=== PATIENT | female | born 1950 | race Caucasian/White ===

== ENCOUNTER → 2018-02-28 | Outpatient (CLI) | payer MEDICARE, OTHER | END | disposition home or self-care (01) | LOC: PCVCCLINIC 15:43 | DX: I42.9 Cardiomyopathy, unspecified (principal); I11.0 Hypertensive heart disease with heart failure; I50.22 Chronic systolic (congestive) heart failure; J44.9 Chronic obstructive pulmonary disease, unspecified; I47.1 Supraventricular tachycardia; J18.9 Pneumonia, unspecified organism; Z79.899 Other long term (current) drug therapy | CPT/HCPCS: 93005; G0463 ==

== ENCOUNTER → 2018-03-08 | Outpatient (CLI) | payer MEDICARE, OTHER ==
[~2018-03-08] MED LIST: DIAZEPAM 10 MG TABLET.; IOHEXOL 350 MG/ML 100 ML VIAL.; IOHEXOL 350 MG/ML 50 ML VIAL.; IV NORMAL SALINE 500ML BAG 500 ML; LIDOCAINE 1% PF 30 ML VIAL.; LIDOCAINE 1%/EPI 1:100,000 20 ML VIAL.; MIDAZOLAM HCL/PF 2 MG/2 ML VIAL.; fentaNYL PF VIAL 100 MCG/2 ML VIAL; hydrALAZINE 20 MG/ML VIAL.
== END | disposition home or self-care (01) ==
LOC: PCVCINTER 11:18
DX: I25.10 Atherosclerotic heart disease of native coronary artery without angina pectoris (principal); I70.1 Atherosclerosis of renal artery; I70.0 Atherosclerosis of aorta; I50.22 Chronic systolic (congestive) heart failure; J44.9 Chronic obstructive pulmonary disease, unspecified; I47.1 Supraventricular tachycardia; I11.0 Hypertensive heart disease with heart failure; Z87.01 Personal history of pneumonia (recurrent); Z79.899 Other long term (current) drug therapy; I42.9 Cardiomyopathy, unspecified
CPT/HCPCS: 36252; 75630; 75716; 76937; 93460; 99152; 99153; C1751; C1760; C1769; C1894; J0360; J1644; J2250; J3010; J3490; J7040; Q9967

== ENCOUNTER → 2018-04-06 | Outpatient (CLI) | payer MEDICARE, OTHER ==
--- NOTE | 2018-04-06 13:35 | PCVCIMAG ---
APPROVED REPORT Study performed: 04/06/2018 12:46:35 EXAM: Limited 2D, Doppler, and color-flow Echocardiogram Patient Location: Echo lab Status: routine BSA: 1.54 HR: 76 bpmBP: 122/84 mmHg Rhythm: NSR Other Information Study Quality: Adequate Indications CAD Cardiomyopathy 2D Dimensions LVEF(%): 34.70 (>50%) IVSd: 11.01 (7-11mm) LVDd: 47.74 mm PWd: 9.01 (7-11mm)Ascending Ao: 32.51 (22-36mm) LVDs: 39.84 (25-40mm) Left Atrium: 29.53 (27-40mm) Aortic Root: 30.05 mm LV Single Plane 4CH: 45.30 % LV Single Plane 2CH: 46.54 %Vasquez's LVEF: 45.92 % Biplane EF: 46.4 % Aortic Valve AoV Peak Delta.: 1.11 m/s AO Peak Gr.: 4.91 mmHg AI Vmax: 4.78 m/s AI Butts: 3.29 m/s2 AI PHT: 421.04 ms Mitral Valve E/A Ratio: 0.6 MV Decel. Time: 207.89 ms MV E Max Delta.: 0.53 m/s MV A Delta.: 0.82 m/s Tricuspid Valve TR Peak Delta.: 2.60 m/s TR Peak Gr.: 27.02 mmHg Left Ventricle The left ventricle is normal size. There is normal LV segmental wall motion. There is normal left ventricular wall thickness. Left ventricular systolic function is mildly decreased globally. LVEF is 45%. Grade I - abnormal relaxation pattern. Right Ventricle The right ventricle is normal size. The right ventricular systolic function is normal. Atria The left atrium size is normal. The right atrium size is normal. Aortic Valve The aortic valve is normal in structure. Mild aortic regurgitation. There is no aortic valvular stenosis. Mitral Valve The mitral valve is normal in structure. Trace mitral regurgitation. No evidence of mitral valve stenosis. Tricuspid Valve The tricuspid valve is normal in structure. Mild tricuspid regurgitation with PAP of 34 mmHg. Pulmonic Valve The pulmonary valve is normal in structure. There is mild pulmonic valvular regurgitation. Great Vessels The aortic root is normal in size. IVC is normal in size and collapses with >50% inspiration Pericardium There is no pericardial effusion. There is no pleural effusion. <Conclusion> The left ventricle is normal size. Left ventricular systolic function is mildly decreased globally. LVEF is 45%. Grade I - abnormal relaxation pattern. The right ventricle is normal size. The left atrium size is normal. Mild aortic regurgitation. Trace mitral regurgitation. Mild tricuspid regurgitation with PAP of 34 mmHg. The aortic root is normal in size. There is no pericardial effusion.
== END | disposition home or self-care (01) ==
LOC: PCVCIMAG 16:23
PROVIDERS: ATTEND Internal Medicine Cardiovascular Disease
DX: I08.2 Rheumatic disorders of both aortic and tricuspid valves (principal); I25.10 Atherosclerotic heart disease of native coronary artery without angina pectoris; J44.9 Chronic obstructive pulmonary disease, unspecified; I11.0 Hypertensive heart disease with heart failure; I50.9 Heart failure, unspecified; I47.1 Supraventricular tachycardia; Z88.8 Allergy status to other drugs, medicaments and biological substances; Z79.899 Other long term (current) drug therapy
CPT/HCPCS: 93005; 93308; G0463

== ENCOUNTER → 2019-04-05 | Outpatient (CLI) | payer MEDICARE, OTHER ==
--- NOTE | 2019-04-06 10:25 | PCVCIMAG ---
APPROVED REPORT Study performed: 04/05/2019 14:07:20 EXAM: Comprehensive 2D, Doppler, and color-flow Echocardiogram Patient Location: Echo lab Room #: [id number]: routine BSA: 1.64 HR: 77 bpmBP: 142/88 mmHg Other Information Study Quality: Good Risk Factors: Cardiac Risk Factors: HTN, Hyperlipidemia Indications COPD CAD Hypertension/HDD 2D Dimensions IVSd: 10.71 (7-11mm)LVOT Diam: 20.20 (18-24mm) LVDd: 46.18 mm PWd: 9.99 (7-11mm)Ascending Ao: 32.86 (22-36mm) LVDs: 32.73 (25-40mm) Left Atrium: 27.74 (27-40mm) Aortic Root: 25.28 mm LV Single Plane 4CH: 46.35 % LV Single Plane 2CH: 45.07 % Biplane EF: 47.1 % Volumes Left Atrial Volume (Systole) Single Plane 4CH: 37.42 mLSingle Plane 2CH: 44.76 mL Biplane LA Volume: 42.00 mLLA ESV Index: 26.00 mL/m2 Aortic Valve AoV Peak Delta.: 1.02 m/s AO Peak Gr.: 4.20 mmHgLVOT Max P.28 mmHg LVOT Max V: 0.76 m/s MARY Vmax: 2.36 cm2 AI Vmax: 4.91 m/s AI Anderson: 4.10 m/s2 AI PHT: 355.60 ms Mitral Valve E/A Ratio: 0.6 MV Decel. Time: 120.39 ms MV E Max Delta.: 0.52 m/s MV A Delta.: 0.88 m/s TDI E/Lateral E': 10.40E/Medial E': 13.00 Medial E' Delta.: 0.04 m/s Lateral E' Delta.: 0.05 m/s Pulmonary Valve PV Peak Delta.: 0.66 m/sPV Peak Gr.: 1.73 mmHg Tricuspid Valve TR Peak Delta.: 2.27 m/s TR Peak Gr.: 20.68 mmHg TV Vmax: 0.46 m/sPA Pressure: 28.00 mmHg Left Ventricle The left ventricle is normal size. There is global mild hypokinesis of the left ventricle. Borderline concentric left ventricular hypertrophy. Left ventricular systolic function is normal. The left ventricular ejection fraction is within the normal range. LVEF is 45-50%. Right Ventricle The right ventricle is normal size. The right ventricular systolic function is normal. Atria The left atrium size is normal. The right atrium size is normal. Aortic Valve Aortic valve is trileaflet. The aortic valve is normal in structure and function. Mild to moderate aortic regurgitation. There is no aortic valvular stenosis. Mitral Valve The mitral valve is normal in structure. Trace mitral regurgitation. No evidence of mitral valve stenosis. Tricuspid Valve The tricuspid valve is normal in structure. Mild tricuspid regurgitation with a PA presure of 28 mmHg. Pulmonic Valve The pulmonary valve is normal in structure. There is no pulmonic valvular regurgitation. Great Vessels The aortic root is normal in size. The ascending aorta is normal in size. IVC is normal in size and collapses >50% with inspiration. Pericardium There is no pericardial effusion. There is no pleural effusion. <Conclusion> The left ventricle is normal size. There is global mild hypokinesis of the left ventricle. LVEF is 45-50%. The right ventricle is normal size. The left atrium size is normal. Aortic valve is trileaflet. The aortic valve is normal in structure and function. Mild to moderate aortic regurgitation. Trace mitral regurgitation. Mild tricuspid regurgitation with a PA presure of 28 mmHg. The aortic root is normal in size. There is no pericardial effusion.
== END | disposition home or self-care (01) ==
LOC: PCVCIMAG 13:48
PROVIDERS: ATTEND Internal Medicine Cardiovascular Disease
DX: I08.2 Rheumatic disorders of both aortic and tricuspid valves (principal); J44.9 Chronic obstructive pulmonary disease, unspecified; I25.10 Atherosclerotic heart disease of native coronary artery without angina pectoris; E78.5 Hyperlipidemia, unspecified; I42.9 Cardiomyopathy, unspecified; E78.00 Pure hypercholesterolemia, unspecified; K21.9 Gastro-esophageal reflux disease without esophagitis; I11.0 Hypertensive heart disease with heart failure; I50.9 Heart failure, unspecified; Z86.79 Personal history of other diseases of the circulatory system; Z88.8 Allergy status to other drugs, medicaments and biological substances; Z79.899 Other long term (current) drug therapy
CPT/HCPCS: 93005; 93306; G0463

== ENCOUNTER → 2019-07-04 | Outpatient (CLI) | payer MEDICARE, OTHER ==
--- NOTE | 2019-07-04 17:19 | PCVCIMAG ---
APPROVED REPORT Study performed: 07/04/2019 15:20:34 Exam: Stress Echocardiogram Indication: Cardiomyopathy Patient Location: Echo lab Stress Nurse: Jinny Moran RN Status: routine Ht: 5 ft 4 in HR: 86 bpm BP: 160/80 mmHg Rhythm: NSR Medical History Medical History: CHF, HTN, COPD Procedure The patient underwent an Exercise Stress Test using the Fletcher Protocol. Blood pressure, heart rate, and EKG were monitored. An Echocardiogram was performed by household appliances service technician in four stages in quad fashion. At peak stress, four selected images were obtained and placed side by side with resting images for comparison. Stress Test Details Stress Test: Exercise stress testing was performed using a Fletcher protocol. HR Resting HR: 86 bpmMax Heart Rate (APMHR): 152 bpm Max HR Achieved: 125 bpmTarget HR (85% APMHR): 129 bpm % of APMHR: 82 Recovery HR: 88 bpm HR response to stress: Normal HR response to stress BP Resting BP: 160/80 mmHg Max BP: 196/90 mmHg Recovery BP: 174/86 mmHg BP response to stress: Normal blood pressure response to stress. ECG Resting ECG: Sinus Rhythm, nonspecific ST-T abnormalities Stress ECG: Sinus Rhythm, nonspecific ST-T abnormalities Recovery ECG: Sinus Rhythm, NSSTT changes Clinical Reason for Termination: Maximal effort Exercise duration: 4 min 53 sec Highest Stage Achieved: Stage 2: 2.5 mph at 12% grade. Exercise capacity: 7.00 METs Overall Exercise Capacity for Age: Poor Stress ECG Conclusion Submaximal stress test. Patient took bystolic and unable to walk long enough to achieve heart rate. Pre-Stress Echo The resting Echocardiogram showed abnormal left ventricular contractility with an estimated Ejection Fraction of about 40-45%. Global hypokinesis. Post-Stress Echo The stress Echocardiogram showed abnormal left ventricular contractility with an estimated Ejection Fraction of about 55%. Conclusion Clinical Response: Non-ischemic Exercise Capacity: Below Average Stress ECG Response: Non-ischemic Stress Echo Images: Non-ischemic Other Information Study Quality: Good
== END | disposition home or self-care (01) ==
LOC: PCVCIMAG 15:04
PROVIDERS: ATTEND Internal Medicine Cardiovascular Disease
DX: I11.0 Hypertensive heart disease with heart failure (principal); I50.20 Unspecified systolic (congestive) heart failure; I42.9 Cardiomyopathy, unspecified; I25.10 Atherosclerotic heart disease of native coronary artery without angina pectoris; E78.5 Hyperlipidemia, unspecified; K21.9 Gastro-esophageal reflux disease without esophagitis
CPT/HCPCS: 93325; 93351